=== PATIENT | female | born 1995 | race Caucasian/White ===

== ENCOUNTER 2021-03-22 14:04 | Emergency (ER) | payer OTHER, BC, SELFPAY ==
--- NOTE | ~2021-03-22 | XR_ITS ---
EXAMINATION: XR lumbar spine 2-3V DATE: 03/22/2021 14:49 INDICATION: Low back injury TECHNIQUE: Anteroposterior and lateral views of the lumbar spine, and cone-down lateral view of the l umbosacral junction were obtained. COMPARISON: None. FINDINGS: Alignment is normal. Vertebral body and disc heights are normal. No significant facet osteoarthritis. Sacrum and bilateral sacralized joints are normal. IMPRESSION: 1. Negative lumbar spine radiographs. Reviewed, dictated and finalized at location A.
[2021-03-22 14:21] VITALS: BP 110/59; PULSE 55; RESP 16; TEMP 36.7; O2SAT 100
--- NOTE | 2021-03-22 14:29 | ED.BACK ---
HPI - Back Pain/Injury General Chief Complaint: Back Pain/Injury Stated Complaint: Back Pain Time Seen by Provider: 03/22/21 14:30 Source: patient and RN notes reviewed Mode of arrival: ambulatory Limitations: no limitations History of Present Illness HPI Narrative: 25-year-old female presents to the [facility] with complaints of right lower back pain Since Monday. 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 Worse on the right than the left. No loss or retention of bowel or bladder. No abdominal pain. Has tried Aleve, ibuprofen, Lidoderm patch along with hot and cold compresses Related Data Allergies Allergy/AdvReac Type Severity Reaction Status Date / Time No Known Allergies Allergy Verified 03/22/21 14:38 Review of Systems Review of Systems: All systems reviewed & are unremarkable except as noted in HPI and below Constitutional: Constitutional: Reports no additional constitutional complaints, Denies chills and Denies fever(s) Eyes: Eyes: Reports no additional eye complaints ENT: Reports system reviewed and no additional complaints, except as documented and Denies sore throat Cardiovascular: Cardiovascular: Reports no additional cardiovascular complaints and Denies chest pain Respiratory: Respiratory: Reports no additional respiratory complaints, Denies cough and Denies dyspnea Gastrointestinal: Gastrointestinal: Reports no additional gastrointestinal complaints, Denies abdominal pain, Denies diarrhea, Denies nausea and Denies vomiting Genitourinary: Genitourinary: Reports no additional female genitourinary complaints, Denies nocturia and Denies urinary incontinence Musculoskeletal: Musculoskeletal: Reports as per HPI and Reports back pain (Right lower) Integumentary/Breasts: Skin/Breast: Reports system reviewed and no additional complaints, except as docu, Denies erythema and Denies rash Neurologic: Reports system reviewed and no additional complaints, except as documented, Denies headache(s), Denies focal weakness, Denies numbness and Denies weakness Psychiatric: Psychiatric: Reports no additional psychiatric complaints Allergic/Immunologic: Allergic/Immunologic: Reports no additional allergic/immunologic complaints PMFSH Comments At the time of my signature, I reviewed and agree with the nursing past medical, surgical, social, and family history. There is no relevant family history pertinent to the patient complaint. Exam Const: General: healthy appearing and alert Nutritional Appearance: well nourished Orientation/consciousness: patient oriented x3 Limitations: no limitations Other: Mild discomfort, pain HENMT: Head: normal to inspection Eyes: Pupils: Equal, round and reactive pupils present Neck: Neck: normal visual inspection, no lymphadenopathy and no meningeal signs Chest: Chest palpation & inspection: normal inspection of the chest Resp: Effort & Inspection: normal respiratory effort and no use of accessory muscles Auscultation: clear to auscultation bilaterally, no crackles, no rales, no rhonchi and no wheezes Cardio: Rate: regular rate Rhythm: regular rhythm GI: GI Palp: Yes Soft to palpation, No Tenderness to palpation present (GI) and No Guarding due to palpation present (GI) : General: Yes no CVA tenderness Back/Spine/Pelvis: Cervical Spine: normal cervical lordosis, cervical ROM normal and No cervical muscular tenderness Thoracic/Lumbar Spine: thoraco-lumbar spasm on the right in the lower lumbar and on the right greater than left and straight leg raise positive (Pain bilaterally right lower back with straight leg raises) Pelvis: no pain with anterior-posterior compression and no pain with lateral compression Coccyx: no swelling Skin: General skin exam: normal color Rashes: no rashes Wounds: no wounds Neuro: General: patient oriented x3, moves all extremities, no meningeal signs and no focal
== END 2021-03-22 15:25 | disposition home or self-care (01) ==
PROVIDERS: Emergency Provider Nurse Practitioner; PCP Family Medicine
DX: S39.012A Strain of muscle, fascia and tendon of lower back, initial encounter (principal); X50.0XXA Overexertion from strenuous movement or load, initial encounter; Y99.0 Civilian activity done for income or pay
CPT/HCPCS: 72100; 99213; G0463

== ENCOUNTER 2021-04-26 12:58 | Emergency (ER) | payer BC, SELFPAY ==
[2021-04-26 13:08] VITALS: BP 116/82; PULSE 78; RESP 18; TEMP 37.3; O2SAT 100
--- NOTE | 2021-04-26 14:10 | ED.URI ---
HPI - URI/Sore Throat General Chief Complaint: Upper Respiratory Infection Stated Complaint: HEADACHE/SORE THROAT Time Seen by Provider: 04/26/21 14:10 Source: patient and RN notes reviewed Mode of arrival: ambulatory Limitations: no limitations History of Present Illness HPI Narrative: 25-year-old female presents to the [facility] with complaints of headache and sore throat since last night. Denies any nausea vomiting or diarrhea. States she has had low-grade fevers as high as 100.1. No [id number] treatment.. No treatment prior to arrival. Denies any past surgical or medical history. Reports that she feels like she has a lot of mucus and that she is coughing every now and then. Related Data Allergies Allergy/AdvReac Type Severity Reaction Status Date / Time No Known Allergies Allergy Verified 04/26/21 13:32 Review of Systems Review of Systems: All systems reviewed & are unremarkable except as noted in HPI and below Constitutional: Constitutional: Reports as per HPI, Reports chills and Reports fever(s) Eyes: Eyes: Reports no additional eye complaints ENT: Reports as per HPI, Reports nasal congestion and Reports sore throat Cardiovascular: Cardiovascular: Reports no additional cardiovascular complaints and Denies chest pain Respiratory: Respiratory: Reports no additional respiratory complaints, Denies cough and Denies dyspnea Gastrointestinal: Gastrointestinal: Reports no additional gastrointestinal complaints, Denies abdominal pain, Denies nausea and Denies vomiting Musculoskeletal: Musculoskeletal: Reports no additional musculoskeletal complaints Integumentary/Breasts: Skin/Breast: Reports system reviewed and no additional complaints, except as docu Neurologic: Reports as per HPI and Reports headache(s) Psychiatric: Psychiatric: Reports no additional psychiatric complaints Allergic/Immunologic: Allergic/Immunologic: Reports no additional allergic/immunologic complaints PMFSH Past Medical History Medical History (Updated 04/29/21 @ 11:35 by Jyoti He) No significant medical problems Surgical History Surgical History (Updated 04/29/21 @ 11:35 by Jyoti He) No significant past surgical history Comments At the time of my signature, I reviewed and agree with the nursing past medical, surgical, social, and family history. There is no relevant family history pertinent to the patient complaint. Exam Const: General: alert and ill appearing acutely Nutritional Appearance: well nourished Orientation/consciousness: patient oriented x3 Limitations: no limitations HENMT: Head: normal to inspection Ears: external ears normal, TM's normal bilaterally and EAC's normal Eyes: Conjunctivae: conjunctivae normal Pupils: Equal, round and reactive pupils present Neck: Neck: normal visual inspection, no lymphadenopathy and no meningeal signs Chest: Chest palpation & inspection: normal inspection of the chest Resp: Effort & Inspection: normal respiratory effort and no use of accessory muscles Auscultation: clear to auscultation bilaterally, no crackles, no rales, no rhonchi and no wheezes Cardio: Rate: regular rate Rhythm: regular rhythm : General: Yes no CVA tenderness Back/Spine/Pelvis: Back: no CVA tenderness Skin: General skin exam: normal color Rashes: no rashes Wounds: no wounds Neuro: General: patient oriented x3, moves all extremities, no meningeal signs and no focal motor deficits Speech: normal speech Gait exam (Neuro): Normal gait present Extrem: General: normal to inspection Psych: Appearance: grossly normal and well kempt Mental Status: mental status grossly normal Affect: normal affect Attitude: cooperative Thought content: Yes Normal thought content present Course Course Emergency Course: Discharge instructions reviewed with patient, as well as provided in writing per nursing staff. The instructions also include specific and strict return/GO TO THE ER as well as
[2021-04-27 19:42] LABS: SARS-CoV-2 RNA PCR Positive
== END 2021-04-26 14:21 | disposition home or self-care (01) ==
PROVIDERS: Emergency Provider Nurse Practitioner
DX: U07.1 COVID-19 (principal)
CPT/HCPCS: 87081; 87880; 99213; C9803; G0463; U0003; U0005

== ENCOUNTER 2022-05-17 14:56 | Outpatient (CLI) | payer OTHER, SELFPAY ==
--- NOTE | ~2022-05-17 | US_ITS ---
EXAMINATION: US OB <=14 wk fetus w TV DATE: 05/17/2022 15:58 INDICATION: Abdominal pain during first trimester TECHNIQUE: Real-time pelvic transabdominal and transvaginal ultrasound was performed. COMPARISON: None. FINDINGS: The uterus measures 7 x 4 x 6 cm. There is an intrauterine gestational sac. There is a 10 mm x 4 mm hypoechoic area adjacent to the gestational sac. A yolk sac is identified. The pole i s not yet demonstrated. The mean sac diameter measures 8 mm , which correlates with an estimated gest ational age of 5 weeks and 3 day(s). The right ovary measures 3 x 1.7 x 2.3 cm. The left ovary measures 3.6 x 2.6 x 3.2 cm. There is alvino l vascular flow in the ovaries. There is no free fluid in the pelvis. IMPRESSION: 1. Intrauterine gestational sac with an estimated gestational age of 5 weeks and 3 day(s) based on me an sac diameter. 2. Small subchorionic hematoma. Reviewed, dictated and finalized at location B. IMPRESSION: 1. Intrauterine gestational sac with an estimated gestational age of 5 weeks an d 3 day(s) based on mean sac diameter. 2. Small subchorionic hematoma.
== END 2022-05-17 14:57 | disposition home or self-care (01) ==
LOC: ANHIMG 15:08
PROVIDERS: PCP Family Medicine; Visit Provider Obstetrics & Gynecology
DX: R10.32 Left lower quadrant pain (principal); O20.8 Other hemorrhage in early pregnancy; Z3A.01 Less than 8 weeks gestation of pregnancy
CPT/HCPCS: 76801; 76817

== ENCOUNTER 2022-06-01 14:26 | Emergency (ER) | payer OTHER, SELFPAY ==
--- NOTE | ~2022-06-01 | US_ITS ---
EXAMINATION: US OB <=14 wk fetus w TV DATE: 06/01/2022 16:16 INDICATION: Pelvic pain during first trimester of TECHNIQUE: Real-time pelvic ultrasound utilizing both a transvaginal and transabdominal probe was pe rformed. The interpreting radiologist was not present for the study. COMPARISON: 05/17/2022 FINDINGS: The anteverted uterus measures 8.3 x 4.7 x 6.1 cm. There is an intrauterine gestational sac. A yolk sac and pole are identified. The crown rump length measures 10 mm, which correlates with an est imated gestational age of 7 weeks and 1 days. heart motion is identified measuring 158 beats pe r minute (bpm) by M-mode Doppler. Cervical length measures 3.7 cm small subchorionic hematoma measuri ng 1.6 x 0.8 x 1.5 cm. The right ovary measures 3.0 x 1.8 x 2.7 cm. The left ovary measures 3.2 x 2.4 x 2.4 cm. 1.4 similar anechoic likely corpus luteum cyst in the left ovary. Vascular flow identified in both ovaries on col or Doppler. There is no free fluid in the pelvis. IMPRESSION: 1. Single living fetus with heart of 158 bpm. 2. Gestational age by ultrasound of 7 weeks 1 day(s) +/- 5 day(s) with ultrasound estimated date of delivery (KATIE) of 01/17/2023. 3. Small subchorionic hematoma. Reviewed, dictated and finalized at location A. IMPRESSION: 1. Single living fetus with heart of 158 bpm. 2. Gestational age by ultrasound of 7 weeks 1 day(s) +/- 5 day(s) with ultraso und estimated date of delivery (KATIE) of 01/17/2023. 3. Small subchorionic hematoma.
[2022-06-01 14:51] VITALS: BP 116/65; PULSE 73; RESP 18; TEMP 36.3; O2SAT 100
[2022-06-01 15:25] LABS: Alanine Aminotransferase 14 U/L (6-35); Albumin Level 4.5 g/dL (3.5-5.1); Alkaline Phosphatase 37 U/L (38-126); Anion Gap 12 mmol/L (8-16); Aspartate Amino Transferase 21 U/L (14-36); Bilirubin,Total 0.2 mg/dL (0.2-1.3); Blood Urea Nitrogen 8 mg/dL (7-17); Calcium 9.4 mg/dL (8.4-10.2); Carbon Dioxide 25 mmol/L (22-30); Chloride 100 mmol/L (98-107); Estimated CRCL calculation 100 ml/min; Estimated Glomerular Filt Rate > 60; Glucose 99 mg/dL (65-110); Lipase 50 U/L (23-300); Potassium 3.7 mmol/L (3.4-5.0); Sodium 137 mmol/L (137-145)
[2022-06-01 15:31] LABS: Basophils Percent Auto 0.5 % (0.2-1.2); Eosinophils Absolute Auto 0.1 K/mm3 (0-0.3); Eosinophils Percent Auto 1.6 % (0-4.4); Hematocrit 33.7 % (37.0-47.0); Hemoglobin 11.3 g/dL (12.0-15.0); Immature Granulocyte Absolute 0.03 K/mm3 (0.00-0.031); Immature Granulocyte Percent A 0.5 % (0-0.5); Lymphocytes Absolute Auto 1.76 K/mm3 (0.9-3.2); Lymphocytes Percent Auto 28.3 % (18.3-44.2); Mean Corpuscular HGB Conc 33.5 g/dl (32-36); Mean Corpuscular Hemoglobin 29.8 pg (26-34); Mean Corpuscular Volume 88.9 fl (80-100); Mean Platelet Volume 10.6 fl (7.4-10.4); Monocytes Absolute Auto 0.4 K/mm3 (0.1-0.6); Monocytes Percent Auto 6.7 % (2.6-8.5); Neutrophils Absolute Auto 3.9 K/mm3 (1.3-6.7); Neutrophils Percent Auto 62.4 % (45.5-73.1); Platelet Count Result 220 k/mm3 (150-375); Red Blood Count 3.79 M/mm3 (4.2-5.4); Red Cell Distribution Width 12.3 % (11.5-14.5); White Blood Count 6.2 K/mm3 (4.5-10.0)
[2022-06-01 15:37] LABS: Appearance Urine Clear (Clear); Bilirubin Urine Negative (Negative); Blood Urine Negative (Negative); Color Urine Light Yellow (Yellow); Glucose Urine UA Negative (Negative); Ketones Urine Negative (Negative); Leukocyte Esterase Ur Negative LEU/UL (Negative); Nitrate Urine Negative (Negative); Protein Urine Negative (Negative); Specific Grav Ur <= 1.005 (1.001-1.035); Urobilinogen Urine 0.2 mg/dL (<2.0); pH Urine 5.5 (5.0-9.0)
[2022-06-01 15:40] LABS: Add Urine Microscopic? NO
--- NOTE | 2022-06-01 15:49 | PC.NURSE ---
Pt. tO US before med pass
[2022-06-01 16:16] VITALS: BP 118/75; PULSE 65; RESP 14; O2SAT 95
[2022-06-01] MEDS: ONDANSETRON INJ 4 MG/2 ML VIAL IV PUSH (16:23)
[2022-06-01] MEDS: SODIUM CHLORIDE 0.9% IV 1,000 ML 999 ML IV CONT (16:23)
--- NOTE | 2022-06-01 16:28 | ED.ABDPAIN ---
HPI - Abdominal Pain General Chief Complaint: Abdominal Pain Stated Complaint: abd cramping, ?7wks Time Seen by Provider: 06/01/22 15:33 History of Present Illness HPI narrative: 26-year-old female who is approximately 7 weeks presents to the emergency room for abdominal cramping and nausea. Patient was seen at an outside emergency room 2 days ago for similar symptoms. States that she was given 2 L of fluid and some antiemetics and told to follow-up with [facility]. Patient denies any vaginal bleeding. Has a follow-up appointment with [facility] in 2 days. Denies fever Related Data Allergies Allergy/AdvReac Type Severity Reaction Status Date / Time No Known Allergies Allergy Verified 06/01/22 16:17 Review of Systems Review of Systems: CONSTITUTIONAL: Denies fever, chills, or sweats. EYES: Denies visual changes, redness, or discharge. ENT: Denies rhinorrhea, congestion, sore throat, or otalgia. CARDIOVASCULAR: Denies chest pain, palpitations, or edema. RESPIRATORY: Denies cough or dyspnea. GASTROINTESTINAL: Abdominal cramping, nausea GENITOURINARY: Denies dysuria or hematuria. SKIN: Denies rash or itching. MUSCULOSKELETAL: Denies back pain, joint pain, or myalgia. NEUROLOGIC: Denies headache, numbness, dizziness, or weakness. PSYCHIATRIC: Denies anxiety or depression. PMFSH Past Medical History Medical History No significant medical problems Surgical History Surgical History No significant past surgical history Exam Narrative: GENERAL: Well-appearing, well-nourished, no physical limitations, and in no acute distress. HEAD: Normocephalic, atraumatic. EYES: Conjunctivae normal, PERRLA and EOMI. CHEST: Clear to auscultation. No respiratory distress. No wheezes rales or rhonchi. HEART: Regular rate and rhythm. No murmur heard. Normal peripheral pulses. ABDOMEN: Soft, nontender, nondistended, normal active bowel sounds. BACK: No CVA tenderness EXTREMITIES: Normal range of motion. No edema. No clubbing or cyanosis SKIN: Warm, dry, no rash. No noted wounds NEURO: No focal deficits. Alert and oriented x3. MAEW. CN's II-XI intact bilaterally, normal gait PSYCH: Cooperative. Normal mood and affect. Course Vital Signs Vital signs: Vital Signs Temperature 36.3 C L 06/01/22 14:51 Pulse Rate 73 06/01/22 14:51 Respiratory Rate 18 06/01/22 14:51 Blood Pressure 116/65 06/01/22 14:51 Pulse Oximetry 100 06/01/22 14:51 Oxygen Delivery Room Air 06/01/22 14:51 Temperature 36.3 C L 06/01/22 14:51 Pulse Rate 65 06/01/22 16:16 Respiratory Rate 14 06/01/22 16:16 Blood Pressure 118/75 06/01/22 16:16 Pulse Oximetry 95 06/01/22 16:16 Oxygen Delivery Room Air 06/01/22 14:51 MDM - Abdominal Pain MDM Narrative Medical decision making narrative: 26-year-old female who is 6 to 7 weeks presented the emergency room for abdominal cramping. Lab work was unremarkable. UA shows no signs of infection. Pelvic ultrasound showed a single fetus approximately 6 weeks with a small subchorionic hemorrhage. Will discharge patient have her follow-up with her [facility]ER in 2 days. Lab Data Result diagrams: 06/01/22 14:58 06/01/22 14:58 Labs: Lab Results 06/01/22 06/01/22 06/01/22 Range/Units 14:58 14:58 14:58 WBC 6.2 (4.5-10.0) K/mm3 RBC 3.79 L (4.2-5.4) M/mm3 Hgb 11.3 L (12.0-15.0) g/dL Hct 33.7 L (37.0-47.0) % MCV 88.9 (80-100) fl MCH 29.8 (26-34) pg MCHC 33.5 (32-36) g/dl RDW 12.3 (11.5-14.5) % Plt Count 220 (150-375) k/mm3 MPV 10.6 H (7.4-10.4) fl Immature Gran % (Auto) 0.5 (0-0.5) % Neut % (Auto) 62.4 (45.5-73.1) % Lymph % (Auto) 28.3 (18.3-44.2) % [place] % (Auto) 6.7 (2.6-8.5) % Eos % (Auto) 1.6 (0-4.4) % Baso % (Auto) 0.5 (0.2-1.2) % Lymph # (Auto) 1.
[2022-06-01 17:24] VITALS: BP 116/66; PULSE 66; RESP 16; O2SAT 100
== END 2022-06-01 17:24 | disposition home or self-care (01) ==
LOC: ANHED 16:50
PROVIDERS: Emergency Medicine; Emergency Provider Nurse Practitioner Family; PCP Family Medicine
DX: O26.891 Other specified pregnancy related conditions, first trimester (principal); R10.9 Unspecified abdominal pain; Z3A.01 Less than 8 weeks gestation of pregnancy; O99.891 Other specified diseases and conditions complicating pregnancy; R11.0 Nausea
CPT/HCPCS: 36415; 76801; 76817; 80053; 81003; 81025; 83690; 84702; 85025; 96361; 96374; 99284; J2405; J7030

== ENCOUNTER 2022-07-19 15:09 | Emergency (ER) | payer OTHER, MEDICAID, SELFPAY ==
[2022-07-19 15:26] VITALS: BP 120/72; PULSE 83; RESP 14; TEMP 37; O2SAT 100
--- NOTE | 2022-07-19 18:34 | ED.ABDPAIN ---
HPI - Abdominal Pain General Chief Complaint: Abdominal Pain Stated Complaint: abd cramping, 15 weeks Time Seen by Provider: 07/19/22 17:54 History of Present Illness HPI narrative: Patient is a 26-year-old female at 15 weeks gestation presenting with abdominal cramping. Patient states that she has actually had lower abdominal cramping for most of this . States that she follows at [facility] and they have obtained multiple ultrasounds as she does have a subchorionic hematoma that they are monitoring. Patient states that she had acute worsening of her abdominal cramping so she called her OBs office who told her to go to the ER. Patient states that she took some Tylenol this morning which did improve the pain. She denies any vaginal bleeding or loss of fluids. States that she has had several weeks of clear vaginal discharge that has not changed. States she has not had any vomiting for several weeks. She denies fevers or chills, chest pain, shortness of breath, diarrhea, dysuria, leg swelling. Related Data Allergies Allergy/AdvReac Type Severity Reaction Status Date / Time No Known Allergies Allergy Verified 06/01/22 16:17 Review of Systems Review of Systems: All systems reviewed & are unremarkable except as noted in HPI and below PMFSH Past Medical History Medical History No significant medical problems Surgical History Surgical History No significant past surgical history Exam Narrative: GENERAL: Well-appearing, well-nourished, and in no acute distress. HEAD: Normocephalic, atraumatic. EYES: PERRLA and EOMI. ENT: Nares clear, no rhinorrhea or epistaxis. Mucous membranes moist. NECK: Supple. CHEST: Clear to auscultation. No respiratory distress. HEART: Regular rate and rhythm. No murmur heard. Normal peripheral pulses. ABDOMEN: Soft, gravid abdomen with no tenderness, no rebound, no guarding EXTREMITIES: Normal range of motion. No edema. SKIN: Warm, dry, no rash. NEURO: No focal deficits. Alert and oriented x3. PSYCH: Normal mood and affect. Course Vital Signs Vital signs: Vital Signs Temperature 98.6 F 07/19/22 15:26 Pulse Rate 83 07/19/22 15:26 Respiratory Rate 14 07/19/22 15:26 Blood Pressure 120/72 07/19/22 15:26 Pulse Oximetry 100 07/19/22 15:26 Oxygen Delivery Room Air 07/19/22 15:26 Temperature 98.6 F 07/19/22 15:26 Pulse Rate 83 07/19/22 15:26 Respiratory Rate 14 07/19/22 15:26 Blood Pressure 120/72 07/19/22 15:26 Pulse Oximetry 100 07/19/22 15:26 Oxygen Delivery Room Air 07/19/22 15:26 MDM - Abdominal Pain MDM Narrative Medical decision making narrative: Patient is a 26-year-old female G3, P2 at approximately 15 weeks gestation presenting with persistent abdominal cramping in the setting of . Vitals are within normal limits. Exam is reassuring. Her abdomen is gravid, soft, nontender. UA is unremarkable. Suspect the patient's ongoing abdominal pain is related to round ligament pain. She is in her second trimester now. Discussed appropriate supportive care. Advised [facility] follow-up. Strict return precautions given. Patient voiced understanding and is agreeable with plan. Discharged in stable condition. Lab Data Labs: Lab Results 07/19/22 Range/Units 18:49 Urine Color Yellow (Yellow) Urine Appearance Clear (Clear) Urine pH 6.0 (5.0-9.0) Ur Specific [place] 1.015 (1.001-1.035) Urine Protein Negative (Negative) mg/dL Urine Glucose (UA) Negative (Negative) mg/dL Urine Ketones Negative (Negative) mg/dL Ur Blood (Man) Negative (Negative) Urine Nitrate Negative (Negative) Urine Bilirubin Negative (Negative) Urine Urobilinogen 0.2 (<2.0) mg/dL Leukocyte Esterase Rfl Negative (Negative) ANGELA/UL Urine RBC 0-2 (0-2) /hpf Urine W
[2022-07-19] MEDS: ACETAMINOPHEN 500 MG TABLET 1000 MG PO (18:49)
[2022-07-19 19:08] LABS: Appearance Urine Clear (Clear); Bilirubin Urine Negative (Negative); Blood Urine Negative (Negative); Color Urine Yellow (Yellow); Glucose Urine UA Negative (Negative); Ketones Urine Negative (Negative); Leukocyte Esterase Ur Negative LEU/UL (Negative); Nitrate Urine Negative (Negative); Protein Urine Negative (Negative); Specific Grav Ur 1.015 (1.001-1.035); Urobilinogen Urine 0.2 mg/dL (<2.0)
[2022-07-19 19:15] LABS: Mucus Urine Rare /lpf; RBC Urine 0-2 /hpf (0-2); Squamous Epithelial Cell Urine Rare /hpf (Few); WBC Urine 0-3 /hpf
[2022-07-19 19:17] LABS: Add Urine Microscopic? NO
== END 2022-07-19 20:06 | disposition home or self-care (01) ==
PROVIDERS: Emergency Provider Emergency Medicine; PCP Family Medicine
DX: O26.892 Other specified pregnancy related conditions, second trimester (principal); R10.2 Pelvic and perineal pain; Z3A.15 15 weeks gestation of pregnancy
CPT/HCPCS: 81003; 99283; A9270

== ENCOUNTER 2024-01-02 09:56 | Emergency (ER) | payer OTHER, SELFPAY ==
--- NOTE | ~2024-01-02 | CT_ITS ---
EXAMINATION: CT abdomen pelvis w con DATE: 01/02/2024 12:19 INDICATION: Right abdominal pain. TECHNIQUE: Computed tomography (CT) of the abdomen and pelvis was performed with 100 mL Omnipaque 350 intravenous contrast. Automated exposure control and iterative reconstruction technique were employe d. The dose-length product was 446.69 mGy-cm. COMPARISON: None. FINDINGS: The visualized portions of the lung bases demonstrate minimal atelectasis. No pleural effus ion. The heart size is normal. No pericardial effusion. The liver, gallbladder, spleen, pancreas, adr enal glands, and kidneys are normal. There are no dilated loops of bowel. The appendix is normal. The re are no pathologically enlarged lymph nodes. There is physiologic fluid in the pelvis. There is an umbilical hernia containing fat. There is mild lumbar spondylosis. IMPRESSION: 1. Umbilical hernia containing fat. Reviewed, dictated and finalized at location A.
[2024-01-02 10:23] VITALS: BP 118/79; PULSE 78; RESP 16; TEMP 36.7; O2SAT 100
[2024-01-02 10:27] VITALS: BP 122/81; PULSE 75; RESP 16; TEMP 36.7; O2SAT 100
[2024-01-02 11:02] LABS: White Blood Count 5.5 K/mm3 (4.5-10.0)
[2024-01-02 11:03] LABS: Basophils Percent Auto 0.5 % (0.2-1.2); Eosinophils Absolute Auto 0.2 K/mm3 (0-0.3); Eosinophils Percent Auto 2.7 % (0-4.4); Hematocrit 37.2 % (37.0-47.0); Hemoglobin 12.1 g/dL (12.0-15.0); Immature Granulocyte Absolute 0.01 K/mm3 (0.00-0.031); Immature Granulocyte Percent A 0.2 % (0-0.5); Lymphocytes Absolute Auto 1.75 K/mm3 (0.9-3.2); Lymphocytes Percent Auto 31.8 % (18.3-44.2); Mean Corpuscular HGB Conc 32.5 g/dl (32-36); Mean Corpuscular Volume 86.1 fl (80-100); Mean Platelet Volume 10.4 fl (7.4-10.4); Monocytes Absolute Auto 0.3 K/mm3 (0.1-0.6); Monocytes Percent Auto 6.2 % (2.6-8.5); Neutrophils Absolute Auto 3.2 K/mm3 (1.3-6.7); Neutrophils Percent Auto 58.6 % (45.5-73.1); Platelet Count Result 227 k/mm3 (150-375); Red Blood Count 4.32 M/mm3 (4.2-5.4); Red Cell Distribution Width 13.4 % (11.5-14.5)
[2024-01-02 11:42] LABS: Alanine Aminotransferase 23 U/L (6-35); Albumin Level 4.5 g/dL (3.5-5.1); Alkaline Phosphatase 45 U/L (38-126); Anion Gap 4 mmol/L (4-12); Aspartate Amino Transferase 22 U/L (14-36); Bilirubin,Total 0.4 mg/dL (0.2-1.3); Blood Urea Nitrogen 14 mg/dL (7-17); Calcium 9.5 mg/dL (8.4-10.2); Carbon Dioxide 26 mmol/L (22-30); Chloride 106 mmol/L (98-107); Estimated CRCL calculation 98 ml/min; Estimated Glomerular Filt Rate > 60; Glucose 94 mg/dL (65-110); Lipase 83 U/L (23-300); Potassium 4.1 mmol/L (3.4-5.0); Sodium 136 mmol/L (137-145)
[2024-01-02 11:51] LABS: Appearance Urine Clear (Clear); Bilirubin Urine Negative (Negative); Blood Urine Negative (Negative); Color Urine Yellow (Yellow); Glucose Urine UA Negative (Negative); Ketones Urine Negative (Negative); Leukocyte Esterase Ur Negative LEU/UL (Negative); Nitrate Urine Negative (Negative); Protein Urine Negative (Negative); Specific Grav Ur 1.015 (1.001-1.035); Urobilinogen Urine 0.2 mg/dL (<2.0); pH Urine 5.5 (5.0-9.0)
[2024-01-02 11:57] LABS: Add Urine Microscopic? NO
[2024-01-02] MEDS: KETOROLAC 30 MG/ML VIAL (*BKC) IV PUSH (12:31)
[2024-01-02] MEDS: FAMOTIDINE 20 MG/2 ML VIAL IV PUSH (12:31)
[2024-01-02] MEDS: SODIUM CHLORIDE 0.9% IV 2,000 ML 999 ML IV CONT (12:32)
[2024-01-02] MEDS: ONDANSETRON INJ 4 MG/2 ML VIAL IV PUSH (12:32)
--- NOTE | 2024-01-02 13:23 | ED.GENADULT ---
HPI - General Adult General Chief complaint: Abdominal Pain Stated complaint: abd pain Time Seen by Provider: 01/02/24 11:21 History of Present Illness HPI narrative: Sadaf Ross is a 28 y/o female who present with complaints of RUQ pain that has been off and on in waves for about 3-4 weeks that is worse with eating and today she had an acute episode after eating wtih nausea but has not vomited. Last BM was yesterday Denies fever/chills medical records show that she has had normal RUQ US and normal HIDA scans in the past, she followed up with GI 5 days ago regarding this abdominal pain as well. Related Data Home Medications Medication Instructions Recorded Confirmed amoxicillin 875 mg tablet 875 mg PO Q12H 12/29/23 buspirone 10 mg tablet 10 mg PO BID 12/29/23 ondansetron 4 mg disintegrating 4 mg PO Q8H 12/29/23 tablet Allergies Allergy/AdvReac Type Severity Reaction Status Date / Time No Known Allergies Allergy Verified 12/29/23 12:48 Review of Systems Review of Systems: CONSTITUTIONAL: Denies fever, chills, or sweats. EYES: Denies visual changes, redness, or discharge. ENT: Denies rhinorrhea, congestion, sore throat, or otalgia. CARDIOVASCULAR: Denies chest pain, palpitations, or edema. RESPIRATORY: Denies cough or dyspnea. GASTROINTESTINAL: + RUQ abdominal pain comes in waves off and on, + nausea no vomiting - Last BM yesterday GENITOURINARY: Denies dysuria or hematuria. SKIN: Denies rash or itching. MUSCULOSKELETAL: Denies back pain, joint pain, or myalgia. NEUROLOGIC: Denies headache, numbness, dizziness, or weakness. PSYCHIATRIC: Denies anxiety or depression. [facility] Past Medical History Medical History Chronic migraine No significant medical problems Seizure Surgical History Surgical History H/O dilation and curettage No significant past surgical history Social History Social History Smoking status: Current every day smoker Tobacco type: e-cigarettes/vaping Alcohol intake: current Alcohol use details: social Substance use: never Substance use type: does not use Exam Narrative: GENERAL: Well-appearing, well-nourished, and in no acute distress. HEAD: Normocephalic, atraumatic. EYES: PERRLA and EOMI. ENT: Nares clear, no rhinorrhea or epistaxis. Mucous membranes moist. Oropharynx without tonsillar hypertrophy exudate or other lesions. Bilateral TMs pearly montez nonbulging NECK: Supple. No adenopathy or masses. No carotid bruits or JVD CHEST: Clear to auscultation. No respiratory distress. No wheezes rales or rhonchi HEART: Regular rate and rhythm. No murmur heard. Normal peripheral pulses. ABDOMEN: Soft, nondistended, normal active bowel sounds + RUQ pain with palpation EXTREMITIES: Normal range of motion. No edema. SKIN: Warm, dry, no rash. NEURO: No focal deficits. Alert and oriented x3. PSYCH: Normal mood and affect. Course Vital Signs Vital signs: Vital Signs Temperature 36.7 C 01/02/24 10:23 Pulse Rate 78 01/02/24 10:23 Respiratory Rate 16 01/02/24 10:23 Blood Pressure 118/79 01/02/24 10:23 Pulse Oximetry 100 01/02/24 10:23 Temperature 36.7 C 01/02/24 10:27 Pulse Rate 75 01/02/24 10:27 Respiratory Rate 16 01/02/24 10:27 Blood Pressure 122/81 01/02/24 10:27 Pulse Oximetry 100 01/02/24 10:27 Oxygen Delivery Room Air 01/02/24 10:27 Medical Decision Making [facility] Narrative Medical decision making narrative: 28 y/o with RUQ abdominal pain she states has been off and on the past three weeks and felt much worse today with nausea NO vomiting/ no fever/chills on exam pt appears well, + RUQ pain with palpation abdomen other gar soft/ non distended / bowel sounds present Looking at her records she has had previous RUQ US and HIDA scan that were nega
[2024-01-02] MEDS: MORPHINE SULFATE (*CRX) 4 MG/ML INJ IV PUSH (14:01)
[2024-01-02 14:20] VITALS: BP 104/70; PULSE 56; RESP 12; O2SAT 100
[2024-01-02 14:21] VITALS: BP 104/70; PULSE 54; RESP 12; O2SAT 100
== END 2024-01-02 14:38 | disposition home or self-care (01) ==
PROVIDERS: Student in an Organized Health Care Education/Training Program; Emergency Provider Nurse Practitioner Family; PCP Family Medicine
DX: R10.11 Right upper quadrant pain (principal); F17.290 Nicotine dependence, other tobacco product, uncomplicated; K42.9 Umbilical hernia without obstruction or gangrene
CPT/HCPCS: 36415; 74177; 80053; 81003; 81025; 83690; 85025; 96361; 96374; 96375; 99284; J1885; J2270; J2405; J7030; Q9967

== ENCOUNTER 2024-01-06 15:51 | Emergency (ER) | payer OTHER, SELFPAY ==
--- NOTE | ~2024-01-06 | XR_ITS ---
EXAM: XR hand LT min 3V DATE: 01/06/2024 16:15 HISTORY: left hand pain-smashed ulnar side in door . COMPARISON: X-ray left wrist 02/07/2011. FINDINGS: Normal mineralization. No fracture or dislocation. No lytic or blastic lesion. Joint space s are maintained. No erosion or periosteal change. Soft tissues within normal limits. IMPRESSION: No acute osseous finding the left hand. Reviewed, dictated and finalized at location K.
[2024-01-06 16:06] VITALS: BP 125/73; PULSE 80; RESP 80; TEMP 36.8; O2SAT 100
[2024-01-06 16:12] VITALS: BP 125/73; PULSE 80; RESP 80; TEMP 36.8; O2SAT 100
--- NOTE | 2024-01-06 16:12 | ED.UPPEXIN ---
HPI - Extremity Injury (Upper) General Chief Complaint: Extremity Injury, Upper Stated Complaint: left hand/arm/finger pain Time Seen by Provider: 01/06/24 16:10 Source: patient Mode of arrival: ambulatory Limitations: no limitations History of Present Illness HPI narrative: Sadaf is a 28-year-old female patient presenting to the clinic today with complaints smashing her ulnar aspect of her hand-5th finger in a house door. She reports that they are remodeling the house and there was 2 doors and that her hand got smashed in between the 2 doors. Related Data Home Medications Medication Instructions Recorded Confirmed buspirone 10 mg tablet 10 mg PO BID 12/29/23 01/06/24 hydrocodone 10 mg-acetaminophen 1 tablet PO Q4-6H PRN Pain 01/06/24 01/06/24 325 mg tablet linaclotide 145 mcg capsule 145 mcg PO DAILY 01/06/24 01/06/24 (Linzess) Allergies Allergy/AdvReac Type Severity Reaction Status Date / Time No Known Allergies Allergy Verified 01/06/24 16:02 Review of Systems Review of Systems: Pertinent positives per HPI. Patient denies any fever, chills, rash, headache, visual changes, dizziness, cough, runny nose, sore throat, shortness of breath, chest pain, palpitations, nausea, vomiting, diarrhea, constipation, abdominal pain, or any urinary issues. PMFSH Past Medical History Medical History Chronic migraine No significant medical problems Seizure Surgical History Surgical History H/O dilation and curettage No significant past surgical history Social History Social History Smoking status: Current every day smoker Tobacco type: e-cigarettes/vaping Alcohol intake: current Alcohol use details: social Substance use: never Substance use type: does not use Comments At the time of my signature, I reviewed and agree with the nursing past medical, surgical, social, and family history. There is no relevant family history pertinent to the patient complaint. Exam Narrative: General: Well-developed, well nourished, in no apparent distress Head: Normocephalic, atraumatic. Cardio: Regular rate and rhythm, s1 and s2 normal, no murmur appreciated. Resp: Clear to auscultation bilaterally, no rhonchi, rales, wheezing or rubs. Musculoskeletal: No deformity, tender to palpation over the left 5th finger and over the 5th metacarpal, abrasion noted to the distal volar aspect of the 5th finger, unable to bend and extend the left 5th finger due to pain, peripheral pulse strong, no edema, no cyanosis, normal gait and station Course Course Emergency Course: Portions of this record may have been created with voice recognition software. Level of Care: Express Care Visit Vital Signs Vital signs: Vital Signs Temperature 36.8 C 01/06/24 16:06 Pulse Rate 80 01/06/24 16:06 Respiratory Rate 80 H 01/06/24 16:06 Blood Pressure 125/73 01/06/24 16:06 Pulse Oximetry 100 01/06/24 16:06 Oxygen Delivery Room Air 01/06/24 16:06 Temperature 36.8 C 01/06/24 16:06 Pulse Rate 80 01/06/24 16:06 Respiratory Rate 80 H 01/06/24 16:06 Blood Pressure 125/73 01/06/24 16:06 Pulse Oximetry 100 01/06/24 16:06 Oxygen Delivery Room Air 01/06/24 16:06 Vital signs reviewed MDM - Extremity Injury (Upper) MDM Narrative Medical decision making narrative: At the time of visit patient is resting comfortably on the exam table. Patient appears to be nontoxic. Diagnostics: Left hand x-ray was performed and was negative for any sign of fracture or malalignment. Plan: I suspect patient has a hand and left 5th finger contusion. She also has an abrasion to the volar aspect of the distal 5th finger. Wound cleansed and triple antibiotic ointment and Band-Aid was applied. Ice pack was given. Supportive measures we
== END 2024-01-06 16:52 | disposition home or self-care (01) ==
PROVIDERS: Emergency Provider Nurse Practitioner Family; PCP Family Medicine
DX: S60.417A Abrasion of left little finger, initial encounter (principal); S60.052A Contusion of left little finger without damage to nail, initial encounter; S60.222A Contusion of left hand, initial encounter; X58.XXXA Exposure to other specified factors, initial encounter; F17.290 Nicotine dependence, other tobacco product, uncomplicated
CPT/HCPCS: 73130; 99213; G0463

== ENCOUNTER 2024-01-22 12:01 | Outpatient (CLI) | payer OTHER, SELFPAY ==
[2024-01-22 13:44] LABS: Amylase 69 U/L (30-110)
== END 2024-01-22 12:02 | disposition home or self-care (01) ==
LOC: ANHLAB 12:05
PROVIDERS: PCP Family Medicine; Visit Provider Surgery
DX: Z01.818 Encounter for other preprocedural examination (principal); K81.1 Chronic cholecystitis
CPT/HCPCS: 36415; 82150

== ENCOUNTER 2024-01-24 16:12 | Outpatient (CLI) | payer OTHER, SELFPAY ==
--- NOTE | ~2024-01-24 | XR_ITS ---
EXAMINATION: XR abdomen/kub 1V DATE: 01/24/2024 16:29 INDICATION: Abdominal pain, bloating and weight gain TECHNIQUE: A supine view of the abdomen on 2 radiographs was obtained. COMPARISON: CT abdomen pelvis dated 01/02/2024 FINDINGS: Moderate amount of stool scattered throughout the colon. No dilated loops of gas-filled bowel to sugg est obstruction. Visualized lower lungs are clear. Heart size is normal. IMPRESSION: 1. Normal bowel gas pattern with moderate amount of colonic stool. Reviewed, dictated and finalized at location A.
== END 2024-01-24 16:13 | disposition home or self-care (01) ==
PROVIDERS: PCP Family Medicine; Visit Provider Nurse Practitioner Family
DX: K59.09 Other constipation (principal)
CPT/HCPCS: 74018

== ENCOUNTER 2024-01-25 00:46 | Day surgery (SDC) | payer OTHER, SELFPAY ==
[2024-01-16 14:18] VITALS: BMI 27.4
--- NOTE | 2024-01-16 14:40 | PC.NURSE ---
Report to the Outpatient Waiting Room, entrance under the green pavilion located off [facility], at 0630 on 01-25-24. Planned Procedure Time: 0830. Time changes happen often and if your time is changed the preop area will call you the afternoon before. - You and your visitor will be asked to self-screen and do not enter if you have any COVID symptoms. - A mask is optional within the hospital at this time. Patients may have clear liquids (water, carbonated beverages, clear teas, apple juice) until 3 hours prior to surgery with a maximum of 20 ounces. 0530 - No food from midnight until time of surgery - Infants may have breast milk until 4 hours before surgery, formula 6 hours prior to surgery. - Children will be allowed to drink immediately following surgery. If applicable, please bring a bottle or sippy cup to assist with drinking. Juice, water, soda, and popsicles are readily available. For infants on formula, please bring formula the day of surgery. Pacifiers are allowed. Take the following medications with a SIP of water the morning of surgery: buspirone DO NOT STOP ANY OF YOUR OTHER PRESCRIPTION MEDICATIONS PRIOR TO SURGERY ?EXCEPT THE FOLLOWING Medications to discontinue per physician: ibuprofen Date to take last dose: Per Dr. Haque Please no make-up, nail malay, hairspray, perfume, deodorant, or body powder the day of surgery. No jewelry (including any body piercings) or valuables the day of surgery, leave them at home. Please take a shower or bath the night before, or the morning of, surgery with an antibacterial soap. Wear comfortable, loose fitting clothing. Children are encouraged to wear pajamas. - Jewelry must be removed prior to entering the operating room. Rings and piercings that are not removed may be cut off. - The hospital will not accept responsibility for valuables. - Please leave all valuables, including medications, at home the day of surgery. If you are going home after surgery, a licensed driver trainee must drive you home. - NO public transportation without another adult if you receive anesthesia. - We recommend that an adult stay with you for 24 hours following discharge. - We also recommend that you do not drive, make important decision, drink alcoholic beverages, or take any drugs that were not prescribed by your health care provider for at least 24 hours after your discharge time. For Pediatric surgeries, we recommend two adults accompany the child home. Follow any additional instructions given to you from your surgeon. If you or anyone in your household have experienced Covid symptoms in the past week, please notify your surgeon or the nurse liaison at the phone number below for possible testing. Telephone instructions given to Sadaf Ross and asked if any additional questions and then verbalized understanding. Patient advised to call surgeon office or pre surgery nurse liaison [phone] if any additional questions.
[2024-01-25] VITALS (11 sets, daily range): BP systolic 111–146; BP diastolic 58–90; PULSE 60–98; RESP 10–20; TEMP 36.7–36.8; O2SAT 99–100
--- NOTE | 2024-01-25 07:22 | WPDHPUPDATE1 ---
History and Physical Update Update Date/Time: 01/25/24 07:22 History and Physical has been reviewed, including an updated exam of the patient. There are NO changes in the patient's condition. Risks, benefits, and alternatives have been discussed and questions answered. Patient agrees to proceed with procedure.
[2024-01-25] MEDS: KETOROLAC 15 MG/ML VIAL (*BKC) IV PUSH (07:55)
[2024-01-25] MEDS: ACETAMINOPHEN 500 MG TABLET 1000 MG PO (07:55)
[2024-01-25] MEDS: LACTATED RINGERS 1,000 ML 30 ML IV CONT ×2 (07:57→12:06)
--- NOTE | 2024-01-25 08:21 | WPDANESEPPF ---
Anes - Initial Pre Proc Eval Procedure: Operation Date: 01/25/24 08:30 Proposed Procedures p Laparoscopic Cholecystectomy - Camille Haque MD Date/Time: 01/25/24 08:21 Surgeon: Camille Haque MD Pre Op Diagnosis: chronic cholecystitis Patient Data Age: 28 Gender: F Height: 1.68 m Weight: 77.11 kg Last Vital Signs Temp 98.1 F 01/25/24 06:30 Pulse 73 01/25/24 06:30 BP 111/58 L 01/25/24 06:30 Pulse Ox 100 01/25/24 06:30 O2 Del Method Room Air 01/25/24 06:30 Allergies Allergy/AdvReac Type Severity Reaction Status Date / Time No Known Allergies Allergy Verified 01/16/24 13:51 Home Medications Medication Instructions Recorded Confirmed Type buspirone 10 mg tablet 10 mg PO BID 12/29/23 01/16/24 History pantoprazole 40 mg tablet,delayed 40 mg PO BID #60 tabs 12/29/23 01/16/24 Rx release linaclotide 145 mcg capsule 145 mcg PO DAILY 01/06/24 01/16/24 History (Linzess) amoxicillin 875 mg tablet 875 mg PO BID 01/16/24 01/16/24 History ibuprofen 200 mg tablet 400 mg PO Q6H PRN Pain, Moderate 01/16/24 01/16/24 History ondansetron HCl 4 mg tablet 4 mg PO Q8H PRN nausea 01/16/24 01/16/24 History ondansetron 4 mg disintegrating 4 mg PO Q8H PRN nausea and 01/17/24 Rx tablet vomiting #14 tabs Patient hx anesthesia problems: none Family hx anesthesia problems: none Results Review: All pre-operative results and documents have been reviewed as part of the pre-operative evaluation. [facility] Past Medical History Medical History Chronic migraine No significant medical problems Seizure Surgical History Surgical History H/O dilation and curettage Family History Family History Other Cerebrovascular accident Diabetes mellitus Heart disease Hypertension Thyroid disorder Social History Social History Years smoked: 4 Smoking status: Former smoker Tobacco type: cigarettes and e-cigarettes/vaping Additional smoking assessment comments: currently vapes with nicotine Alcohol intake: current Alcohol use details: sometimes Substance use: never Substance use type: does not use Do You Feel Safe in your Home?: Yes Lack of Transportation: No Lack of Food: Never True Current Housing: I Have Housing Concerned About Future Housing: No Difficulty Paying Gas/Electric Bills: No Difficulty Paying for Meds: No Currently Unemployed: No Education: High School Diploma/GED Difficulty w/ Childcare or Family Care: No Living arrangements: with family Spiritual care concerns: No Anes - Eval Final PreProcedure Day of Procedure 01/25/24 08:21 Patient weight: obese Heart: regular rate and rhythm Lungs: clear to auscultation Airway: Mallampati scale class II Neurological: alert and oriented Last oral intake: >/= 8 hours ASA classification: II Emergent: no Anesthetic plan: proceed Anesthesia type and monitoring: general ETT and standard monitoring Results Review: All pre-operative results and documents have been reviewed as part of the pre-operative evaluation. 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 Informed Consent: The patient's anesthetic plan and its attendant risks and benefits were discussed with the patient/family/POA. Questions were solicited and answers provided to the satisfaction of the patient/family/POA.
[2024-01-25] MEDS: ceFAZolin 2 GM/D5W 50 ML 2 GM/50 ML BAG IVPB (08:44)
[2024-01-25] MEDS: BUPIVACAINE/EPINEPHRINE 0.5% 10 ML VIAL 30 ML INFILTRATE (09:15)
--- NOTE | 2024-01-25 09:42 | W.PM.PROC2 ---
Procedure Note - Detailed Date of Procedure 01/25/24 Pre-op Diagnosis chronic cholecystitis Post-op Diagnosis Same Procedure Performed Laparoscopic cholecystectomy Surgeon Camille Haque MD Anesthesia General Indications 28-year-old female presented to the office complaining of postprandial right upper quadrant abdominal pain associated with nausea and vomiting. Workup including imaging significant for chronic cholecystitis. Findings Moderate cholecystitis Description of Procedure The patient was taken to the operating room placed in the supine position. After adequate induction of general anesthesia, the patient was prepped and draped in normal sterile fashion. A time-out was then performed to verify the patient's identity as well as the procedure being performed. I then made a 5 mm incision in the infraumbilical region. Through this, a Veress needle was placed into the peritoneal cavity and CO2 gas was then insufflated. After adequate pneumoperitoneum was achieved, the Veress needle was removed and a 5 mm optiview trocar was placed through this incision under direct visualization. I then placed the laparoscope through this trocar site and under direct visualization placed a further 12 mm subxiphoid port as well as 2 additional 5 mm ports in the right upper abdomen. The gallbladder was then identified and was noted to be moderately inflamed and distended. I was able to place a grasper at the dome of the gallbladder and this was retracted anterior and cephalad up over the liver. A 2nd retractor was then placed at the infundibulum and retracted laterally, this allowed visualization of the triangle of Calot. I then was able to visualize the cystic duct in its entirety from its proximal insertion into the gallbladder, to its distal junction with the common hepatic/common bile duct junction. At this point, I carefully skeletonized the proximal cystic duct with the [place] dissector. I then clipped and transected the proximal cystic duct. Next I visualized the cystic artery. Again the artery was skeletonized, clipped, and transected. I then used the Bovie cautery to take down the peritoneal attachments of the gallbladder off the liver bed. Of note, there is an accessory artery to the gallbladder that required additional clipping. Once the gallbladder specimen was completely detached, an endo-pouch was placed through the 12 mm port site. I then placed the gallbladder specimen into the Endo pouch and removed the endo-pouch from the 12 mm port site. The specimen will now be sent to pathology for further review. I then copiously irrigated the right upper quadrant. Some mild oozing was noted in the liver bed and this was controlled with the bovie cautery. Hemostasis was noted in the liver bed, the clips were noted to be in good position on both the cystic duct stump and the cystic artery stump. No other pathology was noted in the right upper quadrant. I then moved the laparoscope to the subxiphoid port. No iatrogenic injury or other pathology was noted in the lower abdomen. I then closed the 12 mm trocar site under direct visualization using the Justin cone and 0 Vicryl suture. At this point, the abdomen was desufflated and all ports removed. All port sites were then closed with 4.O Monocryl subcuticular sutures. Dermabond was placed on each incision. The patient tolerated the procedure well, was extubated in the operating room postoperative and will be transferred to the recovery room in stable condition Estimated Blood Loss 20 Drains No Packing No Pathology Yes Complications No immediate complications Condition Stable Disposition PACU [facility] Billing Surgery - Charge Forward: Surgery Billing
[2024-01-25] MEDS: fentaNYL CITRATE INJ (*CRX) 100 MCG/2 ML VIAL 25 MCG IV PUSH ×4 (09:58→11:57)
[2024-01-25] MEDS: ONDANSETRON INJ 4 MG/2 ML VIAL IV PUSH (10:08)
[2024-01-25] MEDS: oxyCODONE HCL (*CRX) 5 MG TAB IR PO (10:56)
== END 2024-01-25 12:51 | disposition home or self-care (01) ==
PROVIDERS: PCP Family Medicine; Visit Provider Surgery
PROC: 0FT44ZZ Resection of Gallbladder, Percutaneous Endoscopic Approach (ICD-10-PCS; CPT 47562; principal; 2024-01-25 08:30)
DX: K81.1 Chronic cholecystitis (principal); F17.290 Nicotine dependence, other tobacco product, uncomplicated; E66.9 Obesity, unspecified; Z68.27 Body mass index [BMI] 27.0-27.9, adult
CPT/HCPCS: 47562; 36415; 74177; 80053; 80307; 82150; 83605; 83690; 85025; 88304; 96361; 96374; 96375; 96376; 99284; A9270; J0690; J1100; J1170; J1630; J1885; J2250; J2270; J2405; J2704; J3010; J7030; J7120; Q9967

== ENCOUNTER 2024-01-25 13:59 | Emergency (ER) | payer OTHER, SELFPAY ==
[2024-01-25] VITALS (8 sets, daily range): BP systolic 110–138; BP diastolic 68–81; PULSE 68–83; RESP 14–18; TEMP 36.5–36.8; O2SAT 99–100
--- NOTE | ~2024-01-25 | CT_ITS ---
EXAMINATION: CT abdomen pelvis w con DATE: 01/25/2024 16:09 INDICATION: Right upper quadrant abdominal pain. Cholecystectomy earlier in the day. TECHNIQUE: Computed tomography (CT) of the abdomen and pelvis was performed with 100 mL Omnipaque-350 intravenous contrast. Automated exposure control and iterative reconstruction technique were employe d. The dose-length product was 658.87 mGy-cm. COMPARISON: 01/02/2024 FINDINGS: Lung bases are clear. Heart size is normal. No pericardial or pleural effusion. Interval cholecystect yohana with surgical clips and minimal fluid at the gallbladder fossa. There is an additional small amou nt of free fluid in the cul-de-sac with minimal dependent hematocrit level suggesting small amount of postoperative blood. The fluid collection at the cul-de-sac measures 6.6 x 3.5 x 5.6 cm. There is a minimal amount of likely postoperative gas in the nondependent abdomen as well as between the liver a nd right kidney and along likely trocar access tract at the umbilicus and subxiphoid anterior abdomin al wall. Small fat-containing umbilical hernia. Liver, spleen, pancreas, bilateral adrenal glands and kidneys are normal. Bowels including the append ix are normal. Bladder, anteverted uterus and left adnexa are unremarkable. 2.1 cm peripherally enhan cing corpus luteum cyst at the right ovary. No pathologically enlarged abdominal or pelvic lymphadeno jaron. Mild lumbar spondylosis. IMPRESSION: 1. Postoperative changes consistent with recent cholecystectomy with minimal fluid at the gallbladder fossa and additional small fluid collection in the pelvic cul-de-sac with very small layering hemato crit level suggesting small amount of postoperative blood. Reviewed, dictated and finalized at location A. IMPRESSION: 1. Postoperative changes consistent with recent cholecystectomy with minimal fl uid at the gallbladder fossa and additional small fluid collection in the pelvi c cul-de-sac with very small layering hematocrit level suggesting small amount of postoperative blood.
--- NOTE | 2024-01-25 15:32 | ED.ABDPAIN ---
HPI - Abdominal Pain General Chief Complaint: Abdominal Pain <YISEL Agustin Last Filed: 01/25/24 15:37> Stated Complaint: abd pain, had yomi today <YISEL Agustin Last Filed: 01/25/24 15:37> Time Seen by Provider: 01/25/24 15:25 <YISEL Agustin Last Filed: 01/25/24 15:37> Focused HPI: Patient is a 28 y/o female who presents to the ED with c/o abdominal pain. Patient underwent laparoscopic cholecystectomy by Dr. Haque this morning. States she was given some pain medication in the hospital after the surgery but was discharged after the surgery. States she developed more severe pain throughout the day, called the office, and was advised to return. Reports pain diffusely throughout abdomen. Reports nausea, denies vomiting. Denies fevers. GENERAL: Uncomfortable-appearing, well-nourished, and in no acute distress. HEAD: Normocephalic, atraumatic. CHEST: Clear to auscultation. ?No respiratory distress. HEART: Regular rate and rhythm.? ABD: Diffuse tenderness throughout abdomen. Incisions intact, clean and dry. NEURO: ?Alert and oriented x3. Patient screened in triage and initial orders placed.? ?Additional care and disposition to be based upon?diagnostic testing and treatment. <Rosanna Arvizu PA-C - Last Filed: 01/25/24 15:37> Source: patient and old records reviewed <YISEL Agustin Last Filed: 01/25/24 15:37> Mode of arrival: ambulatory <Rosanna Arvizu PA-C - Last Filed: 01/25/24 15:37> Limitations: no limitations <YISEL Agustin Last Filed: 01/25/24 15:37> History of Present Illness HPI narrative: As above with the additional following: States she has not had a bowel movement and has not passed flatus. Feels like there is a lot of gas in her abdomen. <Gladys Hutson MD - Last Filed: 01/27/24 10:45> Related Data Home Medications: Home Medications Medication Instructions Recorded Confirmed buspirone 10 mg tablet 10 mg PO BID 12/29/23 01/16/24 linaclotide 145 mcg capsule 145 mcg PO DAILY 01/06/24 01/16/24 (Linzess) amoxicillin 875 mg tablet 875 mg PO BID 01/16/24 01/16/24 ibuprofen 200 mg tablet 400 mg PO Q6H PRN Pain, Moderate 01/16/24 01/16/24 ondansetron HCl 4 mg tablet 4 mg PO Q8H PRN nausea 01/16/24 01/16/24 <YISEL Agustin Last Filed: 01/25/24 15:37> Allergies/Adverse Reactions: Allergies Allergy/AdvReac Type Severity Reaction Status Date / Time No Known Allergies Allergy Verified 01/16/24 13:51 <YISEL Agustin Last Filed: 01/25/24 15:37> [facility] Past Medical History Medical History: Medical History (Updated 01/27/24 @ 10:34 by Gladys Hutson MD) Chronic cholecystitis Chronic migraine No significant medical problems Seizure <YISEL Agustin Last Filed: 01/25/24 15:37> Surgical History Surgical History: Surgical History H/O dilation and curettage S/P laparoscopic cholecystectomy 01/25/24 Dr Haque <YISEL Agustin Last Filed: 01/25/24 15:37> Family History Family History: Family History Other Cerebrovascular accident Diabetes mellitus Heart disease Hypertension Thyroid disorder <YISEL Agustin Last Filed: 01/25/24 15:37> Social History Social History: Social History Years smoked: 4 Smoking status: Former smoker Tobacco type: cigarettes and e-cigarettes/vaping Additional smoking assessment comments: currently vapes with nicotine Alcohol intake: current Alcohol use details: sometimes Substance use: never Substance use type: does not use Do You Feel Safe in your Home?: Yes Lack of Transportation: No Lack of Food: Never True Current Housing: I Have Housing
[2024-01-25 15:40] LABS: Basophils Percent Auto 0.2 % (0.2-1.2); Hematocrit 37.3 % (37.0-47.0); Hemoglobin 12.3 g/dL (12.0-15.0); Immature Granulocyte Absolute 0.07 K/mm3 (0.00-0.031); Immature Granulocyte Percent A 0.6 % (0-0.5); Lymphocytes Absolute Auto 0.55 K/mm3 (0.9-3.2); Lymphocytes Percent Auto 4.5 % (18.3-44.2); Mean Corpuscular Hemoglobin 28.5 pg (26-34); Mean Corpuscular Volume 86.3 fl (80-100); Mean Platelet Volume 9.9 fl (7.4-10.4); Monocytes Absolute Auto 0.1 K/mm3 (0.1-0.6); Neutrophils Absolute Auto 11.6 K/mm3 (1.3-6.7); Neutrophils Percent Auto 93.7 % (45.5-73.1); Platelet Count Result 249 k/mm3 (150-375); Red Blood Count 4.32 M/mm3 (4.2-5.4); Red Cell Distribution Width 13.8 % (11.5-14.5); White Blood Count 12.4 K/mm3 (4.5-10.0)
[2024-01-25 15:51] LABS: Alanine Aminotransferase 20 U/L (6-35); Albumin Level 4.8 g/dL (3.5-5.1); Alkaline Phosphatase 59 U/L (38-126); Anion Gap 11 mmol/L (4-12); Aspartate Amino Transferase 26 U/L (14-36); Bilirubin,Total 0.4 mg/dL (0.2-1.3); Blood Urea Nitrogen 14 mg/dL (7-17); Carbon Dioxide 19 mmol/L (22-30); Chloride 106 mmol/L (98-107); Estimated CRCL calculation 87 ml/min; Estimated Glomerular Filt Rate > 60; Glucose 114 mg/dL (65-110); Lactic Acid Reflex 1.1 mmol/L (0.7-2.0); Lipase 66 U/L (23-300); Potassium 3.8 mmol/L (3.4-5.0); Sodium 136 mmol/L (137-145)
[2024-01-25] MEDS: MORPHINE SULFATE (*CRX) 4 MG/ML INJ IV PUSH (16:23)
[2024-01-25] MEDS: ONDANSETRON INJ 4 MG/2 ML VIAL IV PUSH ×2 (16:23→18:09)
[2024-01-25] MEDS: SODIUM CHLORIDE 0.9% IV 1,000 ML 999 ML IV CONT (18:09)
[2024-01-25] MEDS: HYDROmorphone HCL INJ (*CRX) 1 MG/ML SYR 0.5 MG IV PUSH (18:09)
[2024-01-25] MEDS: HALOPERIDOL LACTATE 5 MG/ML VIAL 2.5 MG IV PUSH (19:18)
[2024-01-25 19:50] LABS: Amphetamine Screen Urine Negative (Negative); Barbiturate Screen Urine Negative (Negative); Benzodiazepines Screen Urine Positive (Negative); Cannabinoid Screen Urine Negative (Negative); Cocaine Screen Urine Negative (Negative); Methadone Screen Urine Negative (Negative); Opiate Screen Urine Positive (Negative); Phencyclidine Screen Urine Negative (Negative)
== END 2024-01-25 19:54 | disposition home or self-care (01) ==
PROVIDERS: Physician Assistant; Emergency Provider Student in an Organized Health Care Education/Training Program; PCP Surgery
DX: G89.18 Other acute postprocedural pain (principal); R10.9 Unspecified abdominal pain; D72.829 Elevated white blood cell count, unspecified; Z90.49 Acquired absence of other specified parts of digestive tract; F17.290 Nicotine dependence, other tobacco product, uncomplicated; Z79.899 Other long term (current) drug therapy
CPT/HCPCS: 36415; 74177; 80053; 80307; 83605; 83690; 85025; 96361; 96374; 96375; 96376; 99284; J1170; J1630; J2270; J2405; J7030; Q9967

== ENCOUNTER 2024-04-08 15:05 | Outpatient (CLI) | payer OTHER, SELFPAY ==
[2024-04-08 19:17] LABS: Add Urine Microscopic? YES; Appearance Urine Clear (Clear); Bacteria Urine None Seen /hpf; Bilirubin Urine Negative (Negative); Blood Urine 2+ (Negative); Color Urine Yellow (Yellow); Glucose Urine UA Negative (Negative); Ketones Urine Trace mg/dL (Negative); Leukocyte Esterase Ur Negative LEU/UL (Negative); Need Manual Microscopic Reviewed; Nitrate Urine Negative (Negative); Protein Urine 3+ mg/dL (Negative); RBC Urine 51-100 /hpf (0-2); Squamous Epithelial Cell Urine Few /hpf (Few); WBC Urine >100 /hpf (0-3); pH Urine 5.5 (5.0-9.0)
== END 2024-04-08 15:06 | disposition home or self-care (01) ==
LOC: ANHGOSHLAB 15:07
PROVIDERS: PCP Surgery; Visit Provider Clinical Nurse Specialist
DX: N39.0 Urinary tract infection, site not specified (principal)
CPT/HCPCS: 81001; 87077; 87086; 87088; 87181

== ENCOUNTER 2024-05-30 15:55 | Outpatient (NON) | payer OTHER, SELFPAY ==
[2024-05-30 19:53] LABS: Add Urine Microscopic? YES; Appearance Urine Cloudy (Clear); Bacteria Urine 4+ /hpf; Bilirubin Urine Negative (Negative); Blood Urine Negative (Negative); Color Urine Yellow (Yellow); Glucose Urine UA Negative (Negative); Ketones Urine Negative (Negative); Leukocyte Esterase Ur 1+ LEU/UL (Negative); Need Manual Microscopic Reviewed; Nitrate Urine Positive (Negative); Protein Urine Trace mg/dL (Negative); RBC Urine 0-2 /hpf (0-2); Specific Grav Ur 1.015 (1.001-1.035); Squamous Epithelial Cell Urine Occasional /hpf (Few); pH Urine 5.5 (5.0-9.0)
== END 2024-05-30 15:56 | disposition home or self-care (01) ==
LOC: ANHGOSHLAB 15:57
PROVIDERS: PCP Surgery; Visit Provider Clinical Nurse Specialist
DX: N39.0 Urinary tract infection, site not specified (principal)
CPT/HCPCS: 81001; 87077; 87086; 87088; 87186

== ENCOUNTER 2024-06-21 13:03 | Outpatient (CLI) | payer OTHER, SELFPAY ==
[2024-06-21 18:13] LABS: Complement C3 98 mg/dL (88-165); Rheumatoid Factor < 12.0 IU/ML (<12)
[2024-06-21 19:02] LABS: Erythrocyte Sedimentation Rate 8 mm/hr (0-20)
[2024-06-22 08:19] LABS: SS-A <1.0 NEG AI (<1.0 NEG); SS-B <1.0 NEG AI (<1.0 NEG)
[2024-06-24 15:33] LABS: Cyclic Citrullinated Peptide <16 UNITS
[2024-06-25 10:48] LABS: Anti Nuclear Antibody Titer 1:40 titer
[2024-06-25 17:13] LABS: H pylori, Urea Breath DETECTED (NOT DETECTED)
[2024-06-25 21:42] LABS: Actin Antibody (IgG) <20 U (<20)
== END 2024-06-21 13:04 | disposition home or self-care (01) ==
LOC: ANHGOSHLAB 13:05
PROVIDERS: PCP Surgery; Visit Provider Family Medicine
DX: K58.2 Mixed irritable bowel syndrome (principal)
CPT/HCPCS: 36415; 83013; 85652; 86038; 86039; 86160; 86200; 86235; 86364; 86430

== ENCOUNTER 2024-07-04 00:48 | Day surgery (SDC) | payer OTHER, SELFPAY ==
[2024-06-21 14:52] VITALS: BMI 26.6
[2024-07-04 08:45] VITALS: BP 120/62; PULSE 67; RESP 16; TEMP 36.4; O2SAT 100; BMI 25.0
[2024-07-04] MEDS: LACTATED RINGERS 1,000 ML 150 ML IV CONT (09:20)
--- NOTE | 2024-07-04 10:02 | P.PNAN_ITS ---
Anes - Initial Pre Proc Eval Procedure: Operation Date: 07/04/24 10:00 Proposed Procedures p Esophagogastroduodenoscopy & Colonoscopy - Ap Benavidez MD Date/Time: 07/04/24 10:02 Surgeon: Ap Benavidez MD Pre Op Diagnosis: GERD/ LLQ Pain Patient Data Age: 28 Gender: F Height: 1.68 m Weight: 70.5 kg Last Vital Signs Temp 36.4 C L 07/04/24 08:45 Pulse 67 07/04/24 08:45 Resp 16 07/04/24 08:45 BP 120/62 07/04/24 08:45 Pulse Ox 100 07/04/24 08:45 O2 Del Method Room Air 07/04/24 08:45 Allergies Allergy/AdvReac Type Severity Reaction Status Date / Time No Known Allergies Allergy Verified 07/04/24 08:55 Home Medications Medication Instructions Recorded Confirmed Type buspirone 10 mg tablet 10 mg PO BID 12/29/23 07/04/24 History ondansetron 4 mg disintegrating 4 mg PO Q8H PRN nausea and 04/10/24 07/04/24 Rx tablet vomiting #30 tabs amoxicillin 500 mg capsule 1,000 mg PO Q12H 14 days #56 caps 07/01/24 07/04/24 Rx clarithromycin 500 mg tablet 500 mg PO Q12H 14 days #28 tabs 07/01/24 07/04/24 Rx omeprazole 40 mg capsule,delayed 40 mg PO BID 14 days #28 caps 07/01/24 07/04/24 Rx release Patient hx anesthesia problems: none Family hx anesthesia problems: none Results Review: All pre-operative results and documents have been reviewed as part of the pre- operative evaluation. [facility] Past Medical History Medical History Chronic cholecystitis Chronic migraine No significant medical problems Seizure Surgical History Surgical History H/O dilation and curettage S/P laparoscopic cholecystectomy 01/25/24 Dr Haque Family History Family History Other Cerebrovascular accident Diabetes mellitus Heart disease Hypertension Thyroid disorder Social History Social History Smoking packs per day: 0.5 Smoking cigarettes per day: 10.0 Years smoked: 4 Smoking pack-years: 2.00 Smoking status: Former smoker Tobacco type: cigarettes and e-cigarettes/vaping Additional smoking assessment comments: continues to vape Alcohol intake: current Alcohol use details: 2 per month Substance use: never Substance use type: does not use Do You Feel Safe in your Home?: Yes Lack of Transportation: No Lack of Food: Never True Current Housing: I Have Housing Concerned About Future Housing: No Difficulty Paying Gas/Electric Bills: No Difficulty Paying for Meds: No Currently Unemployed: No Education: High School Diploma/GED Difficulty w/ Childcare or Family Care: No Living arrangements: with family Spiritual care concerns: No Anes - Eval Final PreProcedure Day of Procedure 07/04/24 10:02 Patient weight: normal Heart: regular rate and rhythm Lungs: clear to auscultation Airway: Mallampati scale class II Neurological: alert and oriented Last oral intake: >/= 8 hours ASA classification: II Emergent: no Anesthetic plan: proceed Anesthesia type and monitoring: general GIVS and standard monitoring Results Review: All pre-operative results and documents have been reviewed as part of the pre- operative evaluation. Informed Consent: The patient's anesthetic plan and its attendant risks and benefits were discussed with the patient/family/POA. Questions were solicited and answers provided to the satisfaction of the patient/family/POA.
--- NOTE | 2024-07-04 10:05 | P.HP_ITS ---
H&P: HPI History of Present Illness Date/Time: 07/04/24 10:05 Chief Complaint: Abdominal pain Narrative: deficient recently be seen by 1 of our providers, complaining from chronic, atypical abdominal pain associated with some constipation. She has tried Linzess low-dose without relief and even causing worsening of some symptoms. She is here for EGD and colonoscopy. [facility] Past Medical History Medical History Chronic cholecystitis Chronic migraine No significant medical problems Seizure Surgical History Surgical History H/O dilation and curettage S/P laparoscopic cholecystectomy 01/25/24 Dr Haque Family History Family History Other Cerebrovascular accident Diabetes mellitus Heart disease Hypertension Thyroid disorder Social History Social History Smoking packs per day: 0.5 Smoking cigarettes per day: 10.0 Years smoked: 4 Smoking pack-years: 2.00 Smoking status: Former smoker Tobacco type: cigarettes and e-cigarettes/vaping Additional smoking assessment comments: continues to vape Alcohol intake: current Alcohol use details: 2 per month Substance use: never Substance use type: does not use Do You Feel Safe in your Home?: Yes Lack of Transportation: No Lack of Food: Never True Current Housing: I Have Housing Concerned About Future Housing: No Difficulty Paying Gas/Electric Bills: No Difficulty Paying for Meds: No Currently Unemployed: No Education: High School Diploma/GED Difficulty w/ Childcare or Family Care: No Living arrangements: with family Spiritual care concerns: No Meds Home Medications and Allergies Home Medications Medication Instructions Recorded Confirmed Type buspirone 10 mg tablet 10 mg PO BID 12/29/23 07/04/24 History ondansetron 4 mg disintegrating 4 mg PO Q8H PRN nausea and 04/10/24 07/04/24 Rx tablet vomiting #30 tabs amoxicillin 500 mg capsule 1,000 mg PO Q12H 14 days #56 caps 07/01/24 07/04/24 Rx clarithromycin 500 mg tablet 500 mg PO Q12H 14 days #28 tabs 10/28/24 10/31/24 Rx omeprazole 40 mg capsule,delayed 40 mg PO BID 14 days #28 caps 07/01/24 07/04/24 Rx release Allergies Allergy/AdvReac Type Severity Reaction Status Date / Time No Known Allergies Allergy Verified 07/04/24 08:55 Vital Signs Vital Signs - 24 hr 07/04/24 08:45 Temperature 97.5 F L Pulse Rate 67 Respiratory Rate 16 Blood Pressure 120/62 Pulse Oximetry 100 Oxygen Delivery Room Air Assessment and Plan Assessment and plan (1) LLQ pain: Code(s): R10.32 - Left lower quadrant pain Status: Acute Assessment and Plan: The patient is deemed a good candidate for the procedure. Consent signed. Will proceed. (2) Nausea and vomiting: Qualifiers: Vomiting type: bilious vomiting Qualified Code(s): R11.14 - Bilious vomiting Code(s): R11.2 - Nausea with vomiting, unspecified Status: Acute
--- NOTE | 2024-07-04 10:21 | SUR.OPER ---
EGD: [id number] COLON:[id number]
[2024-07-04 10:27] LABS: BEDSIDEPREGUCG Negative (Negative)
[2024-07-04 10:45] VITALS: BP 97/51; PULSE 75; RESP 20; O2SAT 99
[2024-07-04 10:55] VITALS: BP 91/53; PULSE 75; RESP 18; O2SAT 99
[2024-07-04 11:05] VITALS: BP 97/61; PULSE 68; RESP 24; O2SAT 100
== END 2024-07-04 11:25 | disposition home or self-care (01) ==
PROVIDERS: PCP Family Medicine; Referring Provider Nurse Practitioner Family; Visit Provider Internal Medicine Gastroenterology
PROC: 0DJ08ZZ Inspection of Upper Intestinal Tract, Via Natural or Artificial Opening Endoscopic (ICD-10-PCS; CPT 43235; principal; 2024-07-04 10:00)
DX: K29.50 Unspecified chronic gastritis without bleeding (principal); K64.0 First degree hemorrhoids; K81.1 Chronic cholecystitis; K21.9 Gastro-esophageal reflux disease without esophagitis; Z98.890 Other specified postprocedural states; Z90.49 Acquired absence of other specified parts of digestive tract; Z87.891 Personal history of nicotine dependence; Z82.49 Family history of ischemic heart disease and other diseases of the circulatory system
CPT/HCPCS: 43239; 45378; 88305; 88342; J2003; J2704; J7120

== ENCOUNTER 2024-10-11 09:58 | Emergency (ER) | payer OTHER, MEDICAID, SELFPAY ==
[2024-10-11 10:25] VITALS: BP 131/72; PULSE 105; RESP 16; TEMP 37.3; O2SAT 100
--- NOTE | 2024-10-11 10:38 | ED.URI ---
HPI - URI/Sore Throat General Chief Complaint: Upper Respiratory Infection Stated Complaint: flu like symptoms Time Seen by Provider: 10/11/24 10:00 Source: patient Mode of arrival: ambulatory Limitations: no limitations History of Present Illness HPI Narrative: Patient is a 28-year-old female who presents with 3 days of cough, sinus congestion, body aches, fever, sore throat and headache. Reports fever last night of . Denies any nausea, vomiting, diarrhea. Patient has taken Mucinex once at the beginning of symptoms and has taken Tylenol. Related Data Home Medications ?Medication ?Instructions ?Recorded ?Confirmed ?Last Taken ?Type buspirone 10 mg tablet 10 mg PO BID 12/29/23 10/11/24 07/04/24 History Allergies Allergy/AdvReac Type Severity Reaction Status Date / Time No Known Allergies Allergy Verified 10/11/24 10:37 Review of Systems Review of Systems: All systems reviewed & are unremarkable except as noted in HPI and below Constitutional: Constitutional: Denies chills, Denies fatigue, Reports fever(s), Reports headache(s), Denies malaise and Denies weakness Eyes: Eyes: Denies blurry vision, Denies itchy eyes and Denies loss of vision ENT: Denies otalgia, Reports headache(s), Reports nasal congestion, Denies sinus pain, Reports sinus pressure and Reports sore throat Cardiovascular: Cardiovascular: Denies chest pain, Denies irregular heart rhythm and Denies dyspnea Respiratory: Respiratory: Reports cough and Denies dyspnea Gastrointestinal: Gastrointestinal: Denies abdominal pain, Denies diarrhea, Denies nausea and Denies vomiting Musculoskeletal: Musculoskeletal: Denies back pain, Reports myalgias and Denies arthralgias Integumentary/Breasts: Skin/Breast: Denies pruritus and Denies rash Neurologic: Denies headache(s), Denies loss of vision and Denies weakness Psychiatric: Psychiatric: Reports no additional psychiatric complaints Endocrine: Endocrine: Denies fatigue Allergic/Immunologic: Allergic/Immunologic: Denies itchy eyes PMFSH Past Medical History Medical History Chronic cholecystitis Seizure Chronic migraine No significant medical problems Surgical History Surgical History S/P laparoscopic cholecystectomy 01/25/24 Dr Haque H/O dilation and curettage Family History Family History Other Cerebrovascular accident Diabetes mellitus Heart disease Hypertension Thyroid disorder Social History Social History Smoking packs per day: 0.5 Smoking cigarettes per day: 10.0 Years smoked: 4 Smoking pack-years: 2.00 Smoking status: Former smoker Tobacco type: cigarettes and e-cigarettes/vaping Additional smoking assessment comments: continues to vape Alcohol intake: current Alcohol use details: 2 per month Substance use: never Substance use type: does not use Do You Feel Safe in your Home?: Yes Lack of Transportation: No Lack of Food: Never True Current Housing: I Have Housing Concerned About Future Housing: No Difficulty Paying Gas/Electric Bills: No Difficulty Paying for Meds: No Currently Unemployed: No Education: High School Diploma/GED Difficulty w/ Childcare or Family Care: No Living arrangements: with family Spiritual care concerns: No Comments At time of signature, agree with nursing past medical, surgical, social and family history. There is no relevant family history pertinent to the presenting complaint. Exam Const: General: cooperative, healthy appearing, comfortable, no acute distress and well nourished Nutritional Appearance: well nourished Orientation/consciousness: patient oriented x3 Limitations: no limitations HENMT: Head: normal to inspection, normocephalic and atraumatic Ears: hearing grossly normal bilaterally, external ears normal, TM's normal bilaterally, EAC's normal and no periauricular adenopathy Face/Nose/Sinus: Normal external nose present, Abnormal mucous membranes and turbinates present erythematous bilateral and diffuse, normal facial exam, sinuses nontender and face symmetric Face and sinus: normal facial exam, sinuses nontender and face symmetric Mouth: Yes Normal oral and palatal mucosa present, Yes lip normal, Yes tongue normal, Yes Normal salivary glands and ducts present, Yes oropharynx normal and Yes moist mucous membranes Teeth and gingiva: dentition normal Throat: posterior oropharynx normal, tonsils normal, uvula midline and postnasal drainage Eyes: General: appearance normal, both eyes and all related structures Alignment and Position: alignment normal and position normal Periorbital: periorbital findings normal Eyelids: eyelids normal Pupils: Equal, round and reactive pupils present Neck: Neck: normal visual inspection, full ROM, no lymphadenopathy and supple Chest: Chest palpation & inspection: normal inspection of the chest and normal palpation of entire chest wall Resp: Effort & Inspection: normal respiratory effort and able to speak in complete sentences Auscultation: clear to auscultation bilaterally, no crackles, no rales, no rhonchi and no wheezes Cardio: Rate: tachycardic Rhythm: regular rhythm Heart sounds: S1 normal heart sound present and S2 normal heart sound present GI: Inspection: normal to inspection Skin: General skin exam: normal color and no rashes or lesions noted Neuro: General: patient oriented x3 and moves all extremities Cranial nerves: Yes Equal, round and reactive pupils present Speech: normal speech Gait exam (Neuro): Normal gait present Extrem: General: normal to inspection, full ROM and no edema Psych: Appearance: grossly normal and well kempt Mental Status: mental status grossly normal Speech and movement: Normal speech and movement present Affect: normal affect Attitude: cooperative Thought process: Normal thought process present Course Course Emergency Course: Discharge instructions reviewed with patient, as well as provided in writing per nursing staff. The instructions also include specific and strict return/GO TO THE ER as well as f/u information. All questions have been answered, and the patient deny any further questions with discharge and discharge plan. Portions of this record may have been created with voice recognition software Level of Care: Express Care Visit Vital Signs Vital signs: Vital Signs Temperature 37.3 C 10/11/24 10:25 Pulse Rate 105 H 10/11/24 10:25 Respiratory Rate 16 10/11/24 10:25 Blood Pressure 131/72 10/11/24 10:25 Pulse Oximetry 100 10/11/24 10:25 Temperature 37.3 C 10/11/24 10:25 Pulse Rate 105 H 10/11/24 10:25 Respiratory Rate 16 10/11/24 10:25 Blood Pressure 131/72 10/11/24 10:25 Pulse Oximetry 100 10/11/24 10:25 Reviewed MDM - URI/Sore Throat MDM Narrative Medical decision making narrative: Pt well hydrated appearing, in no respiratory distress, hemodynamically stable. Recommend supportive care. The patient is stable at time of discharge the clinical impression was discussed and the patient was given the opportunity to ask questions, which were addressed as completely as possible given the information available at present. Anticipatory guidance and return to care precautions were discussed and the importance of primary care follow-up was stressed and encouraged. The patient voiced understanding of the plan, indications to return, and the need for follow-up. Differential diagnosis considered: Van virus, strep pharyngitis, allergic rhinitis, upper respiratory tract infection, sinusitis, rhinosinusitis, nasopharyngitis. viral pharyngitis, otitis media, otitis externa, otitis effusion, foreign body, cerumen impaction, viral syndrome, and influenza.? Exam findings show no acute concerns or changes; patient is non-toxic appearing and is in no distress.? Patient is appropriate for outpatient treatment and follow-up.? Medical Records Attestation: I reviewed the patient's medical records. Lab Data Attestation: I reviewed the patient's lab results. Labs: Lab Results 10/11/24 Range/Units 10:40 POC Influenza A Ag Positive (Negative) POC Influenza B Ag Negative (Negative) POC SARS CoV-2 Ag Negative (Negative) Discharge Plan Discharge Clinical Impression: Influenza A Patient Disposition: Home, Self-Care Condition: Stable Instructions: Influenza (ED) Additional Instructions: Were positive for influenza A. Your Covid is negative Your symptoms are due to a viral illness, which is not treated with antibiotics. Viral symptoms can be present for up to a few weeks. -For fever/pain, you may take: Tylenol 650-1000mg by mouth every 4-6 hours. Do not exceed 4000mg in 24 hours. Advil (Ibuprofen) 600 mg by mouth every 6 hours. Do not exceed 2400mg in 24 hours. 8 AM: Tylenol 11 AM: Ibuprofen 2 PM: Tylenol 5 PM: Ibuprofen 8 PM: Tylenol 11 PM: Ibuprofen 2 AM: Tylenol 5 AM: Ibuprofen -Antihistamine medication such as Benadryl/Zyrtec at night and Claritin/Jayna during the day can help improve symptoms. -Use Flonase twice a day for 5 days then daily to help reduce the inflammation and dry up your sinuses. -You can also use Sudafed behind the pharmacy counter(12 or 24 hour). Be sure to drink plenty of water with these medications at least 8 ounces with every dose and it is important to drink 8 to 10 glasses of water per day. Water is a natural decongestant -Eat and drink things that are easy to swallow, like tea or soup, or popsicles. -Oral rinses such as: Salt water gargles and/or may use topical anesthetic (eg. Chloraseptic spray) or lozenges to relieve dryness or throat pain). -Frequent hand washing or hand food services coordinator is one of the best ways to prevent spread of infection. -Using a vaporizer or humidifier at night will also help thin secretions and help with coughing up phlegm. -Follow up with primary care provider in 3-5 days if condition is not improving - For new or worsening symptoms go directly to the nearest ER Patient Language: Frisian Prescriptions: New benzonatate 100 mg capsule 100 mg PO BID PRN (Reason: cough) Qty: 14 0RF No Action buspirone 10 mg tablet 10 mg PO BID ondansetron 4 mg tablet,disintegrating 4 mg PO Q8H PRN (Reason: nausea and vomiting) Qty: 30 0RF Follow-up/Referrals: Katheryn,Jose Phelan MD [Primary Care Provider] - 3 Days Stand Alone Forms: Work/School Release IP Time of Disposition: 10:46
[2024-10-11 10:42] LABS: EDCOVIDSCREEN Negative (Negative); EDINFLUASCREEN Positive (Negative); EDINFLUBSCREEN Negative (Negative)
== END 2024-10-11 10:54 | disposition home or self-care (01) ==
PROVIDERS: Emergency Provider Nurse Practitioner Family; PCP Family Medicine
DX: J10.1 Influenza due to other identified influenza virus with other respiratory manifestations (principal); Z20.822 Contact with and (suspected) exposure to COVID-19; F17.290 Nicotine dependence, other tobacco product, uncomplicated
CPT/HCPCS: 87426; 87804; 99213; G0463